=== PATIENT | female | born 1975 | race African-American/Black ===

== ENCOUNTER 2017-05-16 10:11 | Outpatient (CLI) | payer OTHER | END 2017-05-16 10:12 | disposition home or self-care (01) | LOC: BICRAD 10:11 | PROVIDERS: ATTEND Physician Assistant | DX: R05 Cough (principal) | CPT/HCPCS: 71046 ==

== ENCOUNTER 2017-12-29 11:23 | Outpatient (CLI) | payer OTHER | END 2017-12-29 11:24 | disposition home or self-care (01) | LOC: BICMAMMO 11:23 | PROVIDERS: ATTEND Family Medicine | DX: Z12.31 Encounter for screening mammogram for malignant neoplasm of breast (principal); R92.1 Mammographic calcification found on diagnostic imaging of breast; Z80.3 Family history of malignant neoplasm of breast | CPT/HCPCS: 77063; 77067 ==

== ENCOUNTER 2018-01-05 09:50 | Outpatient (CLI) | payer OTHER ==
--- NOTE | 2018-01-05 13:21 | ULT ---
PELVIC ULTRASOUND WITH DOPPLER: (transabdominal, transvaginal, ham scale, color flow, and spectral Doppler) HISTORY: Pelvic pain. FINDINGS: The uterus measures 8.4 x 5 x 5.8 cm with a 1.3 x 1.0 x 1.2 cm mass consistent with fibroid. The end ometrium measures 4 mm in thickness. No endometrial fluid is seen. The right ovary measures 2.2 x 1 .4 x 1.7 cm and the left ovary measures 2.1 x 1.5 x 1.7 cm. Flow is demonstrated to both ovaries. T here is a 1 cm cyst in the left ovary. No abnormal adnexal masses are seen. There is a small amount of free fluid in the pelvis. Nabothian cysts are present in the cervix. IMPRESSION: A 1.3 cm uterine fibroid. POS: [facility]
== END 2018-01-05 09:51 | disposition home or self-care (01) ==
LOC: SCSULT 09:50
PROVIDERS: ATTEND Family Medicine
DX: R10.2 Pelvic and perineal pain (principal); D25.9 Leiomyoma of uterus, unspecified
CPT/HCPCS: 76856

== ENCOUNTER 2018-03-19 12:01 | Emergency (ER) | payer OTHER ==
[~2018-03-19 12:01] MED LIST: Iopamidol 370 76% 100 ML VIAL ONE
[2018-03-19] MEDS ORDERED: Ketorolac Tromethamine 30 MG/ML VIAL ONE (12:32)
[2018-03-19 12:58] LABS: Bilirubin Negative (Negative); Blood, Urine Large (Negative); Clarity Slightly Cloudy (Clear); Glucose, Urine (Dipstick) Negative (Negative); Leukocyte Trace (Negative); Nitrite Negative (Negative); Protein, Urine (Dipstick) Trace mg/dL (Neg-Trace)
[2018-03-19 12:58] LABS: Hemoglobin 11.9 g/dL (12.0-16.0); Mean Corpuscular HGB CONC 32.2 g/dL (32.0-36.0); Mean Corpuscular Hemoglobin 26.9 pg (27.0-31.0); Mean Corpuscular Volume 83.7 fL (78.0-98.0); Mean Platelet Volume 8.3 fL (7.4-10.4); Platelet Count 250 thou/uL (130-400); RBC Distribution Width 12.2 % (11.5-14.5); Red Blood Cell (RBC) Count 4.43 mill/uL (4.20-5.40); White Blood Cell (WBC) Count 7.6 thou/uL (4.8-10.8)
[2018-03-19 13:01] LABS: BHCG - Serum Negative (NEGATIVE); Pregs Control Background? CLEAR/WHITE (CLR/WHITE); Pregs Control Bar Appear? YES (CONTROL BAR)
[2018-03-19 13:03] LABS: Specific Gravity, Urine 1.026 (1.002-1.036)
[2018-03-19 13:08] LABS: Bacteria/HPF 2+ HPF (None Seen); Oval Fat Bodies/HPF Rare HPF (None Seen); RBC/HPF GREATER THAN 50-TNTC HPF (0-3); Squamous Epithelial 0-3 HPF (0-3); WBC/HPF 21-50 HPF (0-3)
[2018-03-19 13:09] LABS: Hyaline Casts/LPF 0-3 HYALINE CAST LPF (0-3 Hyaline)
[2018-03-19 13:10] LABS: ALT (SGPT) 19 U/L (8-55); AST (SGOT) 17 U/L (5-34); Albumin 4.3 g/dL (3.5-5.0); Alkaline Phosphatase 81 U/L (40-150); Anion Gap 13 mmol/L (10-20); BUN (Urea Nitrogen) 12 mg/dL (7.0-18.7); Bilirubin, Total 0.6 mg/dL (0.2-1.2); Calc. Creatinine Clearance 0 mL/min (70-130); Calcium 10.1 mg/dL (7.8-10.44); Carbon Dioxide 25 mmol/L (22-29); Chloride 105 mmol/L (98-107); Estimated GFR-MDRD 83; Globulin 3.7 g/dL (2.4-3.5); Glucose 95 mg/dL (70-105); Potassium 3.6 mmol/L (3.5-5.1); Sodium 139 mmol/L (136-145)
[2018-03-19 13:12] LABS: Eosinophils 1 % (0-10); Lymphocytes 20 % (21-51); MDiff Complete? YES; Monocytes 4 % (0-10); Neutrophil 67 % (42-75); PLT Morphology Comment Appears Adequate; Reactive Lymphocytes 7 % (0-10); Target Cells SLIGHT = 2-5 cells (100X) (0-1/hpf)
--- NOTE | 2018-03-19 14:06 | CT ---
CT ABDOMEN AND PELVIS WITH IV COTNRAST: DATE: 03/19/2018. HISTORY: Right lower quadrant pain as well as groin pain. COMPARISON: Noncontrast CT abdomen and pelvis from 01/12/2011. FINDINGS: The lung bases, liver, spleen, pancreas, bilateral adrenal glands, kidneys, abdominal aorta, decompre ssed urinary bladder, as well as uterine and adnexal structures demonstrate a normal CT appearance. The appendix is normal in caliber. No dilated loops of small bowel are seen. There has been no interval change when compared to the non contrasted CT scan examination. IMPRESSION: No acute findings are seen in the abdomen or pelvis. POS: [facility]
== END 2018-03-19 13:51 | disposition home or self-care (01) ==
LOC: SCSER 12:01
DX: N30.90 Cystitis, unspecified without hematuria (principal)
CPT/HCPCS: 74177; 80053; 81003; 81015; 84703; 85025; 87086; 96361; 96374; J1885

== ENCOUNTER 2018-10-19 10:57 | Emergency (ER) | payer OTHER | END 2018-10-19 11:48 | disposition home or self-care (01) | LOC: SCSER 10:57 | DX: B02.9 Zoster without complications (principal) | CPT/HCPCS: 99282 ==

== ENCOUNTER 2019-10-02 09:12 | Outpatient (CLI) | payer OTHER ==
--- NOTE | 2019-10-02 10:11 | ULT ---
EXAM: US Abdominal CLINICAL HISTORY: Right upper quadrant pain. COMPARISON: None. FINDINGS: Pancreas: Obscured by bowel gas IVC: Visualized IVC has a normal caliber. Aorta: Visualized aorta has a normal caliber. Liver:Normal hepatic parenchymal echotexture. No hepatic masses and intrahepatic biliary dilatation. Contour of the hepatic margin is maintained. Right hepatic lobe measures 17.9 cm. Gallbladder: Small amount of sludge and stones within the lumen of the gallbladder. Gallbladder wall is not thickened. No pericholecystic fluid Aceves's sign:Negative CBD: 0.3 cm common bile duct diameter Portal vein: Patent. Appropriate directional flow. Right kidney: Normal cortical echotexture. No hydronephrosis. Right kidney measuring 5.4 x 4.0 x 10. 3 cm in length. Left kidney: Normal cortical echotexture. No hydronephrosis . Left kidney measuring 6.0 x 9.9 x 5.3 cm in length Spleen: Normal echotexture, measuring 7.9 cm in maximum dimension IMPRESSION: 1. Small amount sludge within the gallbladder. This concern for cholecystitis, HIDA scan can be perfo rmed.
== END 2019-10-02 09:13 | disposition home or self-care (01) ==
LOC: SCSULT 09:12
PROVIDERS: ATTEND Family Medicine
DX: R10.11 Right upper quadrant pain (principal); K82.8 Other specified diseases of gallbladder
CPT/HCPCS: 93975

== ENCOUNTER 2020-01-22 16:10 | Outpatient (CLI) | payer OTHER ==
--- NOTE | 2020-01-22 16:33 | MMO ---
Bilateral MAMMO Bilat Screen [facility]. CLINICAL HISTORY: Patient is 44 years old and is seen for screening. The patient has the following family history of breast cancer: aunt, at age 43, malignant (generic). The patient has no personal history of cancer. VIEWS: The views performed were: bilateral craniocaudal with tomosynthesis and bilateral mediolateral oblique with tomosynthesis. FILMS COMPARED: The present examination has been compared to prior imaging studies performed at [facility] on 10/20/2014, 11/03/2015, 12/29/2017 and 01/10/2019. This study has been interpreted with the assistance of computer-aided detection. MAMMOGRAM FINDINGS: There are scattered fibroglandular densities. There are no suspicious masses, suspicious calcifications, or new areas of architectural distortion. IMPRESSION: THERE IS NO MAMMOGRAPHIC EVIDENCE OF MALIGNANCY. A ROUTINE FOLLOW-UP MAMMOGRAM IN 1 YEAR IS RECOMMENDED. THE RESULTS OF THIS EXAM WERE SENT TO THE PATIENT. ACR BI-RADS Category 1 - Negative MAMMOGRAPHY NOTE: 1. A negative mammogram report should not delay a biopsy if a dominant of clinically suspicious mass is present. 2. Approximately 10% to 15% of breast cancers are not detected by mammography. 3. Adenosis and dense breasts may obscure an underlying neoplasm. Reported by: DAVID COHEN MD Electonically Signed: [id number]
== END 2020-01-22 16:11 | disposition home or self-care (01) ==
LOC: BICMAMMO 16:10
PROVIDERS: ATTEND Family Medicine
DX: Z12.31 Encounter for screening mammogram for malignant neoplasm of breast (principal); Z80.3 Family history of malignant neoplasm of breast
CPT/HCPCS: 77063; 77067

== ENCOUNTER 2021-01-29 08:19 | Outpatient (CLI) | payer BC | END 2021-01-29 08:20 | disposition home or self-care (01) | LOC: BICMAMMO 08:19 | PROVIDERS: ATTEND Family Medicine | DX: Z12.31 Encounter for screening mammogram for malignant neoplasm of breast (principal); Z80.3 Family history of malignant neoplasm of breast | CPT/HCPCS: 77063; 77067 ==

== ENCOUNTER 2021-03-16 06:46 | Outpatient (CLI) | payer BC | END 2021-03-16 06:47 | disposition home or self-care (01) | LOC: BICULT 06:46 | PROVIDERS: ATTEND Family Medicine | DX: R10.9 Unspecified abdominal pain (principal) | CPT/HCPCS: 76700; 76856; 93976 ==

== ENCOUNTER 2022-02-14 13:17 | Outpatient (CLI) | payer BC | END 2022-02-14 13:18 | disposition home or self-care (01) | LOC: BICMAMMO 13:17 | PROVIDERS: ATTEND Family Medicine | DX: Z12.31 Encounter for screening mammogram for malignant neoplasm of breast (principal); Z80.3 Family history of malignant neoplasm of breast | CPT/HCPCS: 77063; 77067 ==